=== PATIENT | male | born 1965 | race Hispanic/Latino ===

== ENCOUNTER 2016-10-27 18:17 | Inpatient (IN) | payer MEDICAID, OTHER ==
[2016-10-27 18:17] VITALS: BMI 20.7
[2016-10-27 19:59] LABS: BASO # 0.1 K/uL (0.0-0.2); BASO % 1.3 % (0.0-2.0); EOS # 0.2 K/uL (0.0-0.7); EOS % 1.7 % (0.0-4.0); HEMATOCRIT 38.2 % (35.0-51.0); LYMPH # 2.2 K/uL (1.0-4.3); LYMPH % 22.6 % (20.0-40.0); MEAN CELL VOLUME 81.7 fL (80.0-94.0); MEAN CORPUSCULAR HEMOGLOBIN 26.9 pg (27.0-31.0); MEAN PLATELET VOLUME 7.9 fL (7.2-11.7); MONO # 0.7 K/uL (0.0-0.8); MONO % 7.1 % (0.0-10.0); RED CELL DISTRIBUTION WIDTH 13.9 % (11.5-14.5); WHITE BLOOD COUNT 9.6 K/uL (4.8-10.8)
[2016-10-27 20:01] LABS: RBC URINE 1 /hpf (0-3); URINE BACTERIA RARE (<OCC); URINE BILIRUBIN NEGATIVE (NEGATIVE); URINE BLOOD NEGATIVE (NEGATIVE); URINE COLOR Yellow (YELLOW); URINE GLUCOSE (UA) NORMAL (Normal); URINE KETONE TRACE mg/dL (NEGATIVE); URINE LEUKOCYTE ESTERASE NEG Leu/uL (Negative); URINE PROTEIN NEGATIVE (NEGATIVE); WBC URINE 1 /hpf (0-5)
[2016-10-27 20:11] LABS: CHLORIDE 99 mmol/L (98-107)
[2016-10-27 20:12] LABS: POTASSIUM 4.2 mmol/L (3.6-5.2); SODIUM 137 mmol/L (132-148)
[2016-10-27 20:14] LABS: ALB/GLOB RATIO 1.3 (1.0-2.1); ALKALINE PHOSPHATASE 84 U/L (38-126); ALT/SGPT 17 U/L (21-72); AST/SGOT 17 U/L (17-59); BILIRUBIN,TOTAL 0.4 mg/dL (0.2-1.3); BLOOD UREA NITROGEN 15 mg/dL (9-20); CARBON DIOXIDE 26 mmol/L (22-30); GFR AFRICAN-AMERICAN > 60; TOTAL PROTEIN 6.9 g/dL (6.3-8.3)
[2016-10-27 20:15] LABS: ALCOHOL SERUM < 10 mg/dl (0-10); CALCIUM 8.5 mg/dl (8.6-10.4); GLUCOSE,RANDOM 95 mg/dL (75-110)
[2016-10-27 21:39] VITALS: O2SAT 99
--- NOTE | 2016-10-27 22:54 | C.PDOC ---
Time Seen by Provider: 10/27/16 18:32 Chief Complaint (Nursing): Substance Abuse History Per: Patient Onset/Duration Of Symptoms: Days Current Symptoms Are (Timing): Still Present Suicide/Self Injury Attempted (Context): None Modifying Factor(s): Narcotics, Cocaine Severity: Moderate Additional History Per: Prior Records Past Medical History Reviewed: Historical Data, Nursing Documentation, Vital Signs Vital Signs: Last Vital Signs Temp 98 F 10/27/16 21:38 Pulse 76 10/27/16 21:38 Resp 18 10/27/16 21:38 BP 120/74 10/27/16 21:38 Pulse Ox 99 10/27/16 21:38 - Medical History PMH: No Chronic Diseases - [facility] Procedures CLOSURE SKIN & SUBCUTANEOUS NEC (12/24/13) INJECT/INFUSE NEC (02/25/13) TETANUS TOXOID ADMINIST (02/25/13) Family History: States: Unknown Family Hx - Social History Hx Tobacco Use: Yes (30 per day) Hx Alcohol Use: No Hx Substance Use: Yes (IVDU Heroin and Cocaine) - Immunization History Hx Influenza Vaccination: No Hx Pneumococcal Vaccination: No Review Of Systems Except As Marked, All Systems Reviewed And Found Negative. Constitutional: Negative for: Fever, Weakness Cardiovascular: Negative for: Chest Pain Respiratory: Negative for: Shortness of Breath Gastrointestinal: Negative for: Vomiting, Abdominal Pain Musculoskeletal: Negative for: Neck Pain Neurological: Negative for: Weakness, Numbness, Seizures, Altered Mental Status Physical Exam - Physical Exam Appears: Non-toxic, No Acute Distress Skin: Normal Color, Warm, Dry Head: Atraumatic, Normacephalic Eye(s): bilateral: PERRL, EOMI Neck: Normal ROM, Supple Cardiovascular: Rhythm Regular Respiratory: Normal Breath Sounds, No Accessory Muscle Use Gastrointestinal/Abdominal: Soft, No Tenderness Back: No CVA Tenderness Extremity: Normal ROM, Other (Track holman on arms) Neurological/Psych: Oriented x3, Normal Motor, Normal Sensation ED Course And Treatment - Laboratory Results Result Diagrams: 10/27/16 19:54 10/27/16 19:54 Lab Interpretation: No Acute Changes O2 Sat by Pulse Oximetry: 99 Pulse Ox Interpretation: Normal Progress Note: Pt states that if he doesn't get detox he will overdose, so Dr. Blanca accepted him to psych. Pt is medically stable for psych admission. Disposition Counseled Patient/Family Regarding: Studies Performed, Diagnosis, Smoking Cessation - Disposition Disposition: HOSPITALIZED Disposition Time: 22:53 Condition: STABLE - Clinical Impression Clinical Impression: Drug abuse Decision To Admit - Pt Status Changed To: Hospital Disposition Of: Inpatient - Admit Certification Admit to Inpatient:: After my assessment, the patient will require hospitalization for at least two midnights. This is because of the severity of symptoms shown, intensity of services needed, and/or the medical risk in this patient being treated as an outpatient. - InPatient: Physician Admission Certification: I certify that this patient requires 2 or more midnights of care for the following reason:: Psych. - . Bed Request Type: Psychiatry Admitting Physician: Travis Blanca Patient Diagnosis: Drug abuse
--- NOTE | 2016-10-28 09:46 | PCM.PSYCH ---
Initial Psychiatric Evaluation - Initial Psychiatric Evaluation Type of Admission: Voluntary Legal Status: Capacity Patient's Reaction to Hospitalization: positive History of Present Illness and Precipitating Events: Pt is a 51 yo M, who is currently from his , has 4 children between the ages of 5-17, currently living alone in an apartment, 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 Pt states suicidal ideation has resolved since onset. Pt has a history of heroin abuse for the past 10 years. Uses 30 bags per day, intravenously. Last use was 7 bags a few hours prior to admission. States he uses clean needles. Tested negative for Hep C and HIV in June, but requesting to be tested again. History of smoking 2 packs of cigarettes per day for 35 years, requesting nicotine patch. Admits to occasional cocaine use, which he last used a few days ago. Denies cannabis, PCP, benzodiazepines, amphetamines, ketamine, pain pills, and any other drug use. History of one previous detox and one rehab- states he did not complete rehab due to family problems he had to tend to. Pt currently complaining of abdominal cramping, fatigue, myalgias, tremors, diaphoresis, chills, and rhinorrhea. Denies nausea, vomiting, diarrhea, constipation, anxiety, paranoia, agitation. Pt's plan following discharge is to attend a extermination inspector rehab program, possibly [facility]. Psych Hx: opioid use disorder Family Psych Hx: Denies PMHx: Denies Meds: Denies Legal issues: Denies Current Medications: Active Medications Generic Name Dose Route Start Last Admin Trade Name Freq PRN Reason Stop Dose Admin Clonidine HCl 0.1 mg 10/27/16 23:36 Catapres PO Q8 PRN COWS Score More or Equal to 5 Hydroxyzine HCl 25 mg 10/27/16 23:35 Atarax PO Q4H PRN Anxiety Ibuprofen 600 mg 10/27/16 23:35 Motrin Tab PO Q6H PRN Pain, moderate (4-7) Loperamide HCl 2 mg 10/27/16 23:36 Imodium PO Q8 PRN Diarrhea Methadone HCl 5 mg 10/28/16 10:00 Methadone PO 10/31/16 09:59 Q24H MARGARET Taper Nicotine 1 patch 10/28/16 10:00 Nicoderm Cq TD DAILY MARGARET Ondansetron HCl 4 mg 10/27/16 23:36 Zofran Tab PO Q8 PRN Nausea/Vomiting Trazodone HCl 100 mg 10/27/16 23:35 10/28/16 00:46 Desyrel PO 100 mg HS PRN Administration Insomnia Past Psychiatric History - Past Psychiatric History Previous Treatment History: None Pertinent Medical Hx (Current Medical&Sleep Prob, Allergies): Allergies Allergy/AdvReac Type Severity Reaction Status Date / Time No Known Allergies Allergy Verified 10/27/16 18:19 No Known Home Med 10/27/16 Review of Systems - Review of Systems All systems: reviewed and no additional remarkable complaints except - Constitutional Constitutional: Chills, Sweats, Malaise - Gastrointestinal Gastrointestinal: Cramping. absent: Diarrhea, Nausea, Vomiting - Musculoskeletal Musculoskeletal: Myalgias - Neurological Neurological: Disequilibrium, Tremor - Psychiatric Psychiatric: Anxiety, Behavioral Changes, Suicidal Ideation. absent: Hallucinations, Homicidal Ideation Mental Status Examination - Personal Presentation Personal Presentation: Looks stated age - Affect Affect: Constricted, Depressed - Motor Activity Motor Activity: Calm - Reliability in Providing Information Reliability in Providing Information: Good - Speech Speech: Organized - Mood Mood: Depressed, Anxious - Formal Thought Process Formal Thought Process: No Impairment - Obsessions/Compulsions Obsessions: No Compulsions: No - Cognitive Functions Orientation: Person, Place, Situation, Time Sensorium: Alert Attention/Concentration: Attentive Abstract Thinking: [place] Estimate of Intelligence: Below average Judgement: Imparied, as evidence by: Poor judgement, Imparied, as evidence by: Lack of insight into illness - Risk Risk: Suicidal, Withdrawal, Diminished functioning - Strength & Assets Inventory Strength & Assets Inventory: Cooperative - Limitations Limitations: Living alone DSM 5 DX - DSM 5 DSM 5 Diagnosis: Major depressive disorder recurrent moderate Opiate use disorder severe Opiate withdrawal Cocaine use disorder moderate - Recommended/Plan of Treatment Treatment Recommendations and Plan of Treatment: Major depressive disorder recurrent moderate CBT Psychoeducation Supportive therapy, individual therapy Start gabapentin 100 mg by mouth 3 times a day Start Trazodone 50 mg PO Q HS Opioid use disorder severe CBT Psychoeducation Supportive therapy, individual therapy Use DC for abstinence Opioid withdrawal CBT Psychoeducation Supportive therapy, individual therapy Clonidine when necessary Methadone taper Cocaine use disorder moderate CBT & Psychoeducation Use DC for abstinence - Smoking Cessation Smoking Cessation Initiated: Yes
--- NOTE | 2016-10-29 11:23 | PCM.PYCHPN ---
Psychiatric Progress Note - Psychiatric Progress Note Patient seen today, length of contact: 15 min Patient Chief Complaint: I'm still having withdrawal symptom Problems Identified/Issues Discussed: Patient seen and evaluated, chart reviewed and discussed with the nurse. Patient reports irritability and agitation. He remained isolated and withdrawn. He still reports withdrawal symptoms including anxiety, headaches, cramps and sweating. reports improvement in his mood and he remained calm and cooperative. He is taking medication and denies any side effects. Supportive therapy and psychoeducation were given Medication Change: Yes (methadone taper) Medical Record Reviewed: Yes Mental Status Examination - Cognitive Function Orientation: Person, Place, Situation, Time Memory: Intact Attention: WNL Concentration: Poor Association: WNL Fund of Knowledge: WNL - Mood Mood: Depressed, Anxious - Affect Affect: Constricted, Depressed - Speech Speech: Soft - Formal Thought Process Formal Thought Process: No Impairment - Suicidal Ideation Suicidal Ideation: No - Homicidal Ideation Homicidal Ideation: No Goal/Treatment Plan - Goal/Treatment Plan Need for Continued Stay: Discharge may exacerbated symptoms, Severe functional impairment Progress Toward Problem(s) and Goals/Treatment Plan: Major depressive disorder recurrent moderate CBT Psychoeducation Supportive therapy, individual therapy gabapentin 100 mg by mouth 3 times a day Trazodone 50 mg PO Q HS Opioid use disorder severe CBT Psychoeducation Supportive therapy, individual therapy Use CT for abstinence Opioid withdrawal CBT Psychoeducation Supportive therapy, individual therapy Clonidine when necessary Methadone taper Cocaine use disorder moderate CBT & Psychoeducation Use CT for abstinence - Smoking Cessation Smoking Cessation Initiated: No
--- NOTE | 2016-10-30 09:53 | PCM.PYCHDC ---
Mental Status Examination - Mental Status Examination Orientation: Person, Place, Situation, Time Memory: Intact Mood: Neutral Affect: Constricted Speech: Soft Attention: WNL Concentration: WNL Association: WNL Fund of Knowledge: WNL Formal Thought Process: No Impairment Description of patient's judgement and insight: good, fair Psychotic Thoughts and Behaviors: denies any AVH Suicidal Ideation: No Current Homicidal Ideation?: No Discharge Summary - Discharge Note Reason for Hospitalization: Pt is a 51 yo M, who is currently from his , has 4 children between the ages of 5-17, currently living alone in an apartment, 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 Pt states suicidal ideation has resolved since onset. Pt has a history of heroin abuse for the past 10 years. Uses 30 bags per day, intravenously. Last use was 7 bags a few hours prior to admission. States he uses clean needles. Tested negative for Hep C and HIV in June, but requesting to be tested again. History of smoking 2 packs of cigarettes per day for 35 years, requesting nicotine patch. Admits to occasional cocaine use, which he last used a few days ago. Denies cannabis, PCP, benzodiazepines, amphetamines, ketamine, pain pills, and any other drug use. History of one previous detox and one rehab- states he did not complete rehab due to family problems he had to tend to. Pt currently complaining of abdominal cramping, fatigue, myalgias, tremors, diaphoresis, chills, and rhinorrhea. Denies nausea, vomiting, diarrhea, constipation, anxiety, paranoia, agitation. Pt's plan following discharge is to attend a alf rehab program, possibly [facility]. Laboratory Data: Abnormal Lab Results 10/29/16 17:06 Hepatitis C Antibody Negative HIV 1&2 Antibody Screen Negative Consultations:: List each consultation separately and include: 1. Reason for request. 2. Findings. 3. Follow-up Summary of Hospital Course include:: 1. Description of specific treatment plan utilized for patients during their course of treatmen. 2. Summarize the time- course for resolution of acute symptoms and/or regressed behaviors. 3. Describe issues identified and worked on during hospitalization. 4. Describe medication utilized. 5. Describe medical problems identified and treated. 6. Reassessment of suicide risk Summary of Hospital Course: During the course of his stay, patient (pt) started progressively improving and he no longer remained irritable, depressed, and suicidal. His mood was improved and he started attending groups and meetings and started socializing. Patient denied any feelings of hopelessness, helplessness, and worthlessness, denied any problem with the sleep or appetite, denied suicidal ideation or homicidal ideation. Pt denied any auditory or visual hallucinations. Some changes were made in his current medications and patient was discharged on following medications. He tolerated these medications very well and denied any side effects. - Final Diagnosis (DSM 5) Condition upon Discharge: GOOD DSM 5: Major depressive disorder recurrent moderate Opioid use disorder severe Opioid withdrawal Cocaine use disorder moderate Disposition: HOME/ ROUTINE Follow-up Treatment Plan: Education: Pt was educated and counseled about the risks and benefits of taking and not taking medications. Pt was educated and counseled about the risks of drinking and abusing drugs. Pt was educated and counseled to go to the ER or call 911 if pt develop suicidal ideation or homicidal ideation, worsening of symptoms or severe side effects of the meds. Prescriptions/Medication Reconciliation: traZODone [Desyrel] 100 mg PO HS PRN #30 tab PRN Reason: Insomnia Gabapentin [Neurontin] 100 mg PO BID #60 capsule - Smoking Cessation Smoking Cessation Medication prescribed: No - Antipsychotic Medications Pt discharged on 2 or more routine antipsychotic medications: No
[2016-10-30 11:22] VITALS: BP 164/122; PULSE 75; RESP 20; TEMP 97.6
== END 2016-10-30 10:50 | disposition home or self-care (01) | DRG 430 ==
LOC: C.ER 18:17 → C.5E 22:54
PROVIDERS: ADMIT Psychiatry & Neurology Psychiatry; ATTEND Psychiatry & Neurology Psychiatry
PROC: HZ2ZZZZ Detoxification Services for Substance Abuse Treatment (ICD-10-PCS; principal; 2016-10-27)
DX: F33.1 Major depressive disorder, recurrent, moderate (principal); F11.23 Opioid dependence with withdrawal; F14.10 Cocaine abuse, uncomplicated

== ENCOUNTER 2017-10-12 16:43 | Inpatient (IN) | payer MEDICAID, OTHER ==
[2017-10-12 16:43] VITALS: BMI 20.7
[2017-10-12 18:37] LABS: BASO # 0.1 K/uL (0.0-0.2); BASO % 1.1 % (0.0-2.0); EOS # 0.1 K/uL (0.0-0.7); EOS % 0.9 % (0.0-4.0); HEMOGLOBIN 14.6 g/dL (12.0-18.0); LYMPH # 2.1 K/uL (1.0-4.3); LYMPH % 22.2 % (20.0-40.0); MEAN CELL VOLUME 86.7 fL (80.0-94.0); MEAN CORPUSCULAR HEMOGLOBIN 29.9 pg (27.0-31.0); MEAN CORPUSCULAR HGB CONC 34.5 g/dL (33.0-37.0); MEAN PLATELET VOLUME 8.9 fL (7.2-11.7); MONO # 0.8 K/uL (0.0-0.8); MONO % 8.1 % (0.0-10.0); NEUT # 6.5 K/uL (1.8-7.0); NEUT % 67.7 % (50.0-75.0); NRBC % 0.1 % (0.0-2.0); RBC 4.86 Mil/uL (4.40-5.90); RED CELL DISTRIBUTION WIDTH 13.7 % (11.5-14.5); WHITE BLOOD COUNT 9.7 K/uL (4.8-10.8)
[2017-10-12 18:44] LABS: URINE BILIRUBIN NEGATIVE (NEGATIVE); URINE BLOOD NEGATIVE (NEGATIVE); URINE CLARITY Clear (Clear); URINE COLOR Yellow (YELLOW); URINE GLUCOSE (UA) NORMAL (Normal); URINE LEUKOCYTE ESTERASE NEG Leu/uL (Negative); URINE PROTEIN NEGATIVE (NEGATIVE); URINE UROBILINOGEN NORMAL mg/dL (0.2-1.0)
[2017-10-12 18:49] LABS: ALB/GLOB RATIO 1.3 (1.0-2.1); ALBUMIN 4.3 g/dL (3.5-5.0); ALT/SGPT 14 U/L (21-72); AST/SGOT 16 U/L (17-59); BLOOD UREA NITROGEN 10 mg/dL (9-20); CALCIUM 8.9 mg/dl (8.6-10.4); GFR AFRICAN-AMERICAN > 60; GFR NON-AFRICAN AMERICAN > 60
[2017-10-12 18:56] LABS: BARBITURATES, UR NEGATIVE (NEGATIVE); BENZODIAZEPINES, UR NEGATIVE (NEGATIVE); PHENCYCLIDINE, UR NEGATIVE (NEGATIVE)
[2017-10-12 18:56] LABS: ACETAMINOPHEN < 10.0 ug/mL (10.0-30.0); SALICYLATE < 1.0 mg/dL 1
[2017-10-12 19:00] LABS: OPIATES, UR POSITIVE (NEGATIVE)
--- NOTE | 2017-10-12 21:55 | C.PDOC ---
History Of Present Illness Pt is here requesting detox from Heroin. Time Seen by Provider: 10/12/17 17:50 Chief Complaint (Nursing): Substance Abuse History Per: Patient, Family Onset/Duration Of Symptoms: Days Current Symptoms Are (Timing): Still Present Suicide/Self Injury Attempted (Context): None Modifying Factor(s): Narcotics Severity: Moderate Associated Symptoms: Depression Additional History Per: Prior Records Past Medical History Reviewed: Historical Data, Nursing Documentation, Vital Signs Vital Signs: Last Vital Signs Temp 98.3 F 10/12/17 16:57 Pulse 86 10/12/17 16:57 Resp 18 10/12/17 16:57 BP 132/69 10/12/17 16:57 Pulse Ox 98 10/12/17 16:57 - Medical History PMH: Depression - [facility] Procedures CLOSURE SKIN & SUBCUTANEOUS NEC (12/24/13) DETOXIFICATION SERVICES FOR SUBSTANCE ABUSE TREATMENT (10/27/16) INJECT/INFUSE NEC (02/25/13) TETANUS TOXOID ADMINIST (02/25/13) Family History: States: Unknown Family Hx - Social History Hx Tobacco Use: Yes (30 per day) Hx Alcohol Use: Yes Hx Substance Use: Yes (IVDU Heroin) - Immunization History Hx Influenza Vaccination: No Hx Pneumococcal Vaccination: No Review Of Systems Except As Marked, All Systems Reviewed And Found Negative. Constitutional: Negative for: Fever Cardiovascular: Negative for: Chest Pain Respiratory: Negative for: Shortness of Breath Gastrointestinal: Negative for: Vomiting, Abdominal Pain Musculoskeletal: Negative for: Neck Pain Neurological: Negative for: Weakness, Numbness Physical Exam - Physical Exam Appears: Non-toxic, No Acute Distress Skin: Normal Color, Warm, Dry, No Rash Head: Atraumatic, Normacephalic Eye(s): bilateral: PERRL, EOMI Neck: Normal ROM, Supple Cardiovascular: Rhythm Regular Respiratory: Normal Breath Sounds, No Accessory Muscle Use Gastrointestinal/Abdominal: Soft, No Tenderness Back: No CVA Tenderness Extremity: Normal ROM Neurological/Psych: Oriented x3, Normal Motor, Normal Sensation ED Course And Treatment - Laboratory Results Result Diagrams: 10/12/17 18:34 10/12/17 18:34 O2 Sat by Pulse Oximetry: 98 Pulse Ox Interpretation: Normal Progress Note: Pt is medically stable for psychiatric admission. 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 This is because of the severity of symptoms shown, intensity of services needed, and/or the medical risk in this patient being treated as an outpatient. - InPatient: Physician Admission Certification: I certify that this patient requires 2 or more midnights of care for the following reason:: Psych. - . 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
--- NOTE | 2017-10-12 22:38 | PCM.BM ---
<Delaney Bowman - Last Filed: 10/12/17 22:37> Treatment Plan Problems - Problems identified on initial assessmt Depression Date Initiated: 10/12/17 Time Initiated: 22:37 Assessment reference: NA Status: Active Suicidal Ideation Date Initiated: 10/12/17 Time Initiated: 22:38 Status: Monitor Treatment assets and liabiliti Patient Assests: adapts well, cooperative Patient Liabilities: substance abuse - Milieu Protocol Maintain good personal hygiene: every shift Encourage regular showers, every shift Remind patient to perform daily oral care, every shift Assist patient to perform ADL's Maintain personal safety: every shift Educate patient to report safety concerns to staff, every shift Monitor environment for contraband/sharps Medication safety: Monitor for expected outcome, potential side effects: every shift, Assess barriers to learning: every shift, Assess readiness for medication education: every shift <Adela Moncada - Last Filed: 10/15/17 07:51> Family Contact Family involvement: Famliy/SO not involved - Goals for Treatment Patient goals for treatment: "I want to go to rehab." Discharge/Continuing Care - Education Needs Education Needs: Patient Medication, Patient Coping Skills, Patient Placement options, Patient Community resources - Discharge Discharge Criteria: Tolerates medication w/o severe side effects, No longer exhibiting s/s of withdrawal, Reduction of target symptoms - Treatment Team Participation Discussed with Family/SO: No Was Patient/Family/SO present at Treatment Team Meeting: Yes
[2017-10-12] MEDS ORDERED: DiphenhydrAMINE 12.5 mg/5 ml LIQ UD (5 ml) ONE (22:44)
[2017-10-12] MEDS ORDERED: PrednisoLONE 6 MG/2 ML SYR ONE (22:45)
[2017-10-12] MEDS ORDERED: Aluminum Hydroxide/Magnesium Hydroxide Susp (30 mL) PO PRN (23:10)
[2017-10-13] MEDS: Multiple Vitamins Tab PO SCH (10:13)
--- NOTE | 2017-10-13 23:24 | PCM.PSYCH ---
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 Pt has a history of heroin use for the past 10 years. He heroin use increased gradually and currently he Uses 30 bags daily, intravenously. Last use was yesterday, one bag. Longest period of abstinence was 10 months from October 2016 to July 2017. He has history of 2 previous detox and 2 rehabs as [employer]. Also uses cannabis, started at 10 years of age. Using 1-2 times per week, one joint each time. Last used one week ago. Alcohol: Started at 11 years of age, guarded about drinking but reported intense a lot, every day in the past. Currently smokes once a week, 1-2 drinks each time. His last drink was yesterday. Patient also has history of cocaine use according to history but patient denied using cocaine. Tested negative for Hep C and HIV in June of 2017, but requesting to be tested again. History of smoking 2 packs of cigarettes per day for 35 years, requesting nicotine patch. Patient was incarcerated 3 times for burglary in the past, not on probation. Patient was born in [place], has GED. 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 Current Medications: Active Medications Generic Name Dose Route Start Last Admin Trade Name Freq PRN Reason Stop Dose Admin Al Hydrox/Mg Hydrox/Simethicone 30 ml 10/12/17 23:10 Maalox 30 Ml PO TID PRN Indigestion / Heartburn Clonidine HCl 0.1 mg 10/12/17 23:10 Catapres PO Q8 PRN COWS Score More or Equal to 5 Folic Acid 1 mg 10/13/17 10:00 10/13/17 10:13 Folic Acid PO 1 mg DAILY MARGARET Administration Loperamide HCl 2 mg 10/12/17 23:10 Imodium PO Q8 PRN Diarrhea Lorazepam 1 mg 10/12/17 23:11 Ativan PO Q4H PRN Symptoms of alcohol withdrawl Methadone HCl 15 mg 10/14/17 10:00 Methadone PO 10/17/17 09:59 DAILY MARGARET Taper Multivitamins 1 tab 10/13/17 10:00 10/13/17 10:13 Hexavitamin PO 1 tab DAILY MARGARET Administration Nicotine 1 patch 10/13/17 13:15 10/13/17 13:24 Nicoderm Cq TD 1 patch DAILY MARGARET Administration Ondansetron HCl 4 mg 10/12/17 23:10 Zofran Tab PO Q8 PRN Nausea/Vomiting Pseudoephedrine HCl 60 mg 10/12/17 23:10 Sudafed Tab PO QID PRN Nasal/Sinus Congestion Thiamine HCl 100 mg 10/13/17 10:00 10/13/17 10:13 Vitamin B1 Tab PO 100 mg DAILY MARGARET Administration Trazodone HCl 50 mg 10/12/17 23:11 10/13/17 21:39 Desyrel PO 50 mg HS PRN Administration Insomnia Past Psychiatric History - Past Psychiatric History Previous Treatment History: Inpatient History of Abuse: None reported History of ETOH/Drug Use: See HPI History of Family Illness: Reported one of his brother and one of his sister are alcoholics. Pertinent Medical Hx (Current Medical&Sleep Prob, Allergies): Allergies Allergy/AdvReac Type Severity Reaction Status Date / Time No Known Allergies Allergy Verified 10/27/16 18:19 No Known Home Med 10/12/17 Review of Systems - Psychiatric Psychiatric: Anxiety, Other Mental Status Examination - Personal Presentation Personal Presentation: Looks stated age - Affect Affect: Other (Appropriate) - Motor Activity Motor Activity: Calm - Reliability in Providing Information Reliability in Providing Information: Fair - Speech Speech: Organized - Mood Mood: Anxious - Formal Thought Process Formal Thought Process: No Impairment - Hallucinations/Delusions Hallucinations: Other (None reported) Delusions: Other - Obsessions/Compulsions Obsessions: None Compulsions: None - Cognitive Functions Orientation: Person, Place, Situation, Time Sensorium: Alert Attention/Concentration: Attentive Abstract Thinking: [place] Estimate of Intelligence: Average Judgement: Intact, as evidence by: Insight regarding need for hospitalization Memory: Recent intact, as evidence by: Ability to recall events of the day, Remote intact, as evidenced by: Ability to recall historical events - Risk Risk: Withdrawal, Diminished functioning - Strength & Assets Inventory Strength & Assets Inventory: Cooperative - Limitations Limitations: Other DSM 5 DX - DSM 5 DSM 5 Diagnosis: Opiate use disorder severe Cannabis use disorder severe Alcohol use disorder moderate - Recommended/Plan of Treatment Treatment Recommendations and Plan of Treatment: Patient education Supportive therapy CBT for relapse prevention Mi for abstinence We'll start methadone maintenance for opiate withdrawal symptoms Other when necessary medications Patient wants to go to a [facility] rehabilitation after discharge from the hospital for follow-up care Projected ELOS: 8-10 days - Smoking Cessation Smoking Cessation Initiated: Yes
[2017-10-14 06:29] VITALS: RESP 20; TEMP 98
[2017-10-14] MEDS: Multiple Vitamins Tab PO SCH (09:38)
--- NOTE | 2017-10-14 19:39 | PCM.PYCHPN ---
Psychiatric Progress Note - Psychiatric Progress Note Patient seen today, length of contact: 15 minutes Patient Chief Complaint: I'm feeling much better Problems Identified/Issues Discussed: Patient seen, chart reviewed, case discussed with the staff. Issues related to illness and treatment were discussed with the patient and staff. Reported compliant with treatment with no adverse affects. Feeling little better. Patient still has some withdrawal symptoms. Patient needs more time for stabilization. Mood reported as okay. Affect appropriate. Aftercare discussed with the patient. At time of evaluation, patient was awake alert oriented 3, no delusions, no auditory or visual hallucinations, no suicidal ideations or homicidal ideations. Medical Problems: None reported Diagnostic Results: Reviewed DSM 5 Symptoms Update: Some improvement with treatment Medication Change: No Medical Record Reviewed: Yes Mental Status Examination - Cognitive Function Orientation: Person, Place, Situation, Time Memory: Intact Attention: WNL Concentration: WNL Association: WN Fund of Knowledge: [facility] Decription of patient's judgement and insights: Fair - Mood Mood: Anxious (Much less than before) - Affect Affect: Other (Appropriate) - Speech Speech: Appropriate - Formal Thought Process Formal Thought Process: No Impairment Psychotic Thoughts and Behaviors: None - Suicidal Ideation Suicidal Ideation: No - Homicidal Ideation Homicidal Ideation: No Goal/Treatment Plan - Goal/Treatment Plan Need for Continued Stay: Remain at risks for inpatient hospitalization, Discharge may exacerbated symptoms, Severe functional impairment Progress Toward Problem(s) and Goals/Treatment Plan: Patient education Supportive therapy CBT for relapse prevention Mi for abstinence Continue treatment as before Patient wants to go to [facility] after discharge from the hospital for follow-up care Estimated Date of D/C: 10/16/17 - Smoking Cessation Smoking Cessation Initiated: Yes
[2017-10-15] MEDS: Multiple Vitamins Tab PO SCH (09:53)
[2017-10-15 11:11] VITALS: BP 108/71; PULSE 93
[2017-10-15 12:22] VITALS: O2SAT 96
--- NOTE | 2017-10-15 13:59 | PCM.PYCHDC ---
Mental Status Examination - Mental Status Examination Orientation: Person, Place, Situation, Time Memory: Intact Mood: Neutral Affect: Other (Appropriate) Speech: Appropriate Attention: WNL Concentration: WNL Association: WNL Fund of Knowledge: WNL Formal Thought Process: No Impairment Description of patient's judgement and insight: Fair Psychotic Thoughts and Behaviors: None Suicidal Ideation: No Current Homicidal Ideation?: No Discharge Summary - Discharge Note Reason for Hospitalization: Opiate use disorder Alcohol use disorder Cannabis use disorder Laboratory Data: Reviewed Consultations:: List each consultation separately and include: 1. Reason for request. 2. Findings. 3. Follow-up Summary of Hospital Course include:: 1. Description of specific treatment plan utilized for patients during their course of treatmen. 2. Summarize the time- course for resolution of acute symptoms and/or regressed behaviors. 3. Describe issues identified and worked on during hospitalization. 4. Describe medication utilized. 5. Describe medical problems identified and treated. 6. Reassessment of suicide risk Summary of Hospital Course: Pt is a 51 yo M, who is currently from his , has 4 children between the ages of 5-17, currently living with his significant other, and is employed as a snow. Pt was admitted for heroin withdrawal. Pt has a history of heroin use for the past 10 years. He heroin use increased gradually and currently he Uses 30 bags daily, intravenously. Last use was yesterday, one bag. Longest period of abstinence was 10 months from October 2016 to July 2017. He has history of 2 previous detox and 2 rehabs as [facility]. Also uses cannabis, started at 10 years of age. Using 1-2 times per week, one joint each time. Last used one week ago. Alcohol: Started at 11 years of age, guarded about drinking but reported intense a lot, every day in the past. Currently smokes once a week, 1-2 drinks each time. His last drink was yesterday. Patient also has history of cocaine use according to history but patient denied using cocaine. Tested negative for Hep C and HIV in June of 2017, but requesting to be tested again. History of smoking 2 packs of cigarettes per day for 35 years, requesting nicotine patch. Patient was incarcerated 3 times for burglary in the past, not on probation. Patient was born in [place], has GED. 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 During his stay on the unit patient was treated with methadone and other when necessary medications. Patient was attending groups and other activities on the unit. Patient started feeling better with treatment. Patient wanted to go to [facility] for follow-up care after discharge from the hospital. Social workers were waiting for response from the [facility] for acceptance. Patient signed a 48 hour notice for discharge ending today. Patient refused to rescind 48 hour notice for discharge and also refused to wait for response from [facility]. As patient was stable with no withdrawal symptoms, patient was discharged. At the time of evaluation and discharge, patient was stable, was awake alert oriented 3, had no delusions, no auditory or visual hallucinations, no suicidal ideations or homicidal ideations. - Final Diagnosis (DSM 5) Condition upon Discharge: STABLE Disposition: HOME/ ROUTINE Follow-up Treatment Plan: Patient wants to go to [facility] after discharge from the hospital for follow-up care - Smoking Cessation Smoking Cessation Medication prescribed: No - Antipsychotic Medications Pt discharged on 2 or more routine antipsychotic medications: No
== END 2017-10-15 12:40 | disposition home or self-care (01) | DRG 745 ==
LOC: C.ER 16:43 → C.5E 21:56
PROVIDERS: ADMIT Psychiatry & Neurology Psychiatry; ATTEND Psychiatry & Neurology Psychiatry
DX: F11.23 Opioid dependence with withdrawal (principal); F32.9 Major depressive disorder, single episode, unspecified; T40.2X5A Adverse effect of other opioids, initial encounter; F12.20 Cannabis dependence, uncomplicated; F17.210 Nicotine dependence, cigarettes, uncomplicated; Z81.1 Family history of alcohol abuse and dependence; F10.20 Alcohol dependence, uncomplicated; Y90.0 Blood alcohol level of less than 20 mg/100 ml; R45.851 Suicidal ideations